=== PATIENT | female | born 1995 | race Caucasian/White ===

== ENCOUNTER → 2023-05-14 | Outpatient (REF) | payer OTHER | LOC: M LAB REF 16:07 | PROVIDERS: ATTEND Physician Assistant Medical | DX: J02.9 Acute pharyngitis, unspecified (principal) ==

== ENCOUNTER → 2023-05-18 | Outpatient (REF) | payer OTHER | LOC: M LAB REF 19:32 | PROVIDERS: ATTEND Physician Assistant Medical | DX: R53.83 Other fatigue (principal); R05.9 Cough, unspecified ==

== ENCOUNTER → 2023-05-18 | Outpatient (CLI) | payer OTHER ==
[2023-05-18 14:59] LABS: MONO SCRN NEGATIVE (NEGATIVE)
== END ==
LOC: M LAB 13:45
PROVIDERS: ATTEND Physician Assistant Medical
DX: R53.83 Other fatigue (principal)